=== PATIENT | male | born 2000 | race Caucasian/White ===

== ENCOUNTER 2021-03-12 15:39 | Emergency (ER) | payer OTHER ==
[2021-03-12 16:44] LABS: RED BLOOD COUNT 4.88 M/UL (4.20-5.50); WHITE BLOOD COUNT 6.9 K/UL (4.5-11.0)
== END 2021-03-12 18:20 | disposition home or self-care (01) ==
LOC: ER1 15:39
PROVIDERS: Emergency Medicine
DX: S30.1XXA Contusion of abdominal wall, initial encounter (principal); V49.40XA Driver injured in collision with unspecified motor vehicles in traffic accident, initial encounter; Y92.219 Unspecified school as the place of occurrence of the external cause
CPT/HCPCS: 70450; 71045; 71260; 72125; 72128; 72131; 72170; 83605; 85025; 85610; 85730; 86850; 86900; 86901; 90714; 99285; G0480; Q9967